=== PATIENT | male | born 1955 | race Caucasian/White ===

== ENCOUNTER 2017-07-07 07:17 | Day surgery (SDC) | payer BC ==
[2017-07-07] MEDS ORDERED: PROPOFOL 500 MG/50 ML EMU IV ONE (07:28)
[2017-07-07] MEDS ORDERED: LIDOCAINE HCL 1% MPF SOL ONE (07:28)
[2017-07-07] MEDS ORDERED: KETOROLAC TROMETHAMINE 30 MG/ML SOL ONE (07:57)
[2017-07-07 10:14] VITALS: BP 133/91; PULSE 69; RESP 18; TEMP 97.4; O2SAT 97
== END 2017-07-07 11:18 | disposition home or self-care (01) ==
LOC: SURG 07:17
PROVIDERS: ATTEND Surgery
DX: Z12.11 Encounter for screening for malignant neoplasm of colon (principal); K57.30 Diverticulosis of large intestine without perforation or abscess without bleeding; K63.5 Polyp of colon; K62.1 Rectal polyp
CPT/HCPCS: 99001; J1885; J2001; J2704